=== PATIENT | female | born 1970 | race Two or more races ===

== ENCOUNTER 2024-04-20 17:56 | Emergency (ER) | payer BC, MEDICAID ==
[~2024-04-20] VITALS: Ht 160 cm; Wt 90.8 kg
[2024-04-20 18:05] VITALS: BP 155/83; PULSE 71; RESP 18; TEMP 97.9
[2024-04-20] MEDS ORDERED: AUG875T PO (20:03)
[2024-04-20] MEDS: IBUPROFEN 800 MG TAB PO ONE (20:27)
[2024-04-20] MEDS: TETANUS-DIPTH-ACEL PERTUSSIS 0.5ML SYR Tdap IM ONE (20:28)
[2024-04-20 20:29] VITALS: O2SAT 96
== END 2024-04-20 20:46 | disposition home or self-care (01) ==
LOC: ER 17:56
DX: S61.230A Puncture wound without foreign body of right index finger without damage to nail, initial encounter (principal); I10 Essential (primary) hypertension; E11.9 Type 2 diabetes mellitus without complications; E78.5 Hyperlipidemia, unspecified; Z86.2 Personal history of diseases of the blood and blood-forming organs and certain disorders involving the immune mechanism; W55.01XA Bitten by cat, initial encounter; Y93.89 Activity, other specified; Y92.89 Other specified places as the place of occurrence of the external cause; Y99.8 Other external cause status
CPT/HCPCS: 90471; 90715